=== PATIENT | male | born 1980 | race Caucasian/White ===

== ENCOUNTER 2020-02-26 00:14 | Emergency (ER) | payer OTHER ==
[~2020-02-26] VITALS: Ht 175.3 cm; Wt 81.6 kg
[2020-02-26 00:15] VITALS: BP 121/80
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
--- NOTE | 2020-02-26 00:20 | NUR ---
ED Nurse Note: ERMD at bedside
--- NOTE | 2020-02-26 00:42 | Emergency Room Report ---
History of Present Illness General Chief Complaint: Pain Present Illness HPI 39-year-old male here with leg pain. The patient had a comminuted fracture of his right tib-fib approximately 1 month ago that had surgical repair at [facility]. Earlier today the patient was transferred to a rehab facility. However as standard protocol the patient was told that he needs to be kept in the 14-day quarantine at [facility] because he was in the hospital. Patient became angry and left AGAINST MEDICAL ADVICE. He was out on the street in front of the rehab facility and called paramedics who brought him here. Here the emergency department the patient says that "I do not need to be quarantined. I do not have COVID-19. You can test me." Patient is angry but is redirectable and able to answer questions appropriately. Allergies: Coded Allergies: No Known Allergies (Unverified , 02/26/20) COVID-19 Screening Contact w/high risk pt: No Experienced COVID-19 symptoms?: No COVID-19 Testing performed [employer]: No Physical Exam Vital Signs Date Time Temp Pulse Resp B/P (MAP) Pulse Ox O2 Delivery O2 Flow Rate FiO2 02/26/20 00:12 98.2 90 18 121/80 (94) 99 Room Air Sp02 EP Interpretation: reviewed, normal General Appearance: no apparent distress, alert, non-toxic Head: normocephalic, atraumatic Eyes: bilateral eye normal inspection, bilateral eye PERRL ENT: hearing grossly normal, normal pharynx, no angioedema, normal voice Neck: full range of motion, supple/symm/no masses Respiratory: chest non-tender, lungs clear, normal breath sounds, speaking full sentences Cardiovascular #1: regular rate, rhythm, no edema Cardiovascular #2: 2+ carotid (R), 2+ carotid (L), 2+ radial (R), 2+ radial (L), 2+ dorsalis pedis (R), 2+ dorsalis pedis (L) Gastrointestinal: normal bowel sounds, non tender, soft, non-distended, no guarding, no rebound Rectal: deferred Genitourinary: normal inspection, no CVA tenderness Musculoskeletal: back normal, other - Multiple close operative wounds diffusely of the right lower extremity held together with skin thomas. No surrounding erythema or induration or drainage or wound evisceration. Diffuse lower extremity swelling. DP and PT pulses intact Neurologic: alert, motor strength/tone normal, sensory intact, responsive, speech normal Psychiatric: memory normal, no suicidal/homicidal ideation, anxious, other - Angry, circumferential reason Lymphatic: no adenopathy Medical Decision Making Diagnostic Impression: Primary Impression: Intractable pain Additional Impressions: Post-op pain Comminuted fracture of shaft of tibia Tibial plateau fracture, right ER Course X-ray right lower extremity: Comminuted tib-fib and tibial plateau fracture with operative hardware throughout the shaft of the tibia. Many skin thomas in place 39-year-old male here with right lower extremity pain after internal fixation of a comminuted right tibial fracture. The patient was hemodynamically stable and neurovascularly intact in the emergency department. He required multiple doses of pain medications here. Multiple attempts were made to transfer the patient back to [facility] where he had the initial surgery performed however they refused transfer. Patient is to be admitted at [facility], and will be transferred to [facility]. Patient accepted by Dr. Cheema at [facility]. Awaiting transfer at this time. Last Vital Signs Date Time Temp Pulse Resp B/P (MAP) Pulse Ox O2 Delivery O2 Flow Rate FiO2 02/26/20 00:12 98.2 90 18 121/80 (94) 99 Room Air Referrals: NOT CHOSEN IPA/,REFERRING (PCP) Steve Hidalgo M.D. Feb 26, 2020 00:42
--- NOTE | 2020-02-26 00:50 | NUR ---
ED Nurse Note: Spoke to AIME of [facility] rehab and was told that the patient left AMA upon ambulance arrival. Rehab never had the chance to assess the patient.
[2020-02-26] MEDS ORDERED: Morphine Sulfate 4mg/ml Inj (IV USE ONLY) IVP ONE (01:00)
--- NOTE | 2020-02-26 01:00 | NUR ---
ED Nurse Note: Blood and rapid covid test sent to lab
[2020-02-26 01:19] LABS: BASOPHILS % (AUTO) 1.4 % (0.0-2.0); EOSINOPHILS % (AUTO) 2.8 % (0.0-3.0); HEMATOCRIT 27.6 % (42.0-52.0); HEMOGLOBIN 9.6 G/DL (14.2-18.0); LYMPHOCYTES % (AUTO) 23.3 % (20.0-45.0); MEAN CORPUSCULAR VOLUME 88 FL (80-99); MONOCYTES % (AUTO) 8.3 % (1.0-10.0); NEUTROPHILS % (AUTO) 64.3 % (45.0-75.0); PLATELET COUNT 728 K/UL (150-450); RED BLOOD COUNT 3.13 M/UL (4.70-6.10); RED CELL DISTRIBUTION WIDTH 12.4 % (11.6-14.8); WHITE BLOOD COUNT 7.3 K/UL (4.8-10.8)
[2020-02-26 01:30] LABS: ANION GAP 11 mmol/L (5-15); BLOOD UREA NITROGEN 11 mg/dL (7-18); CALCIUM 8.4 MG/DL (8.5-10.1); CARBON DIOXIDE 25 MMOL/L (21-32); CHLORIDE 103 MMOL/L (98-107); CREATININE 0.8 MG/DL (0.55-1.30); POTASSIUM 3.7 MMOL/L (3.5-5.1); SODIUM 139 MMOL/L (136-145)
[2020-02-26 01:35] LABS: ALANINE AMINOTRANSFERASE 33 U/L (12-78); ALBUMIN/GLOBULIN RATIO 0.8 (1.0-2.7); ALKALINE PHOSPHATASE 125 U/L (46-116); ASPARTATE AMINO TRANSFERASE 18 U/L (15-37); BILIRUBIN,TOTAL 0.2 MG/DL (0.2-1.0)
--- NOTE | 2020-02-26 02:20 | NUR ---
ED Nurse Note: Urine sent to lab
--- NOTE | 2020-02-26 02:51 | NUR ---
ED Nurse Note: Spoke to CARMELO (supervisor assembling) of [facility] and gave report
--- NOTE | 2020-02-26 03:05 | NUR ---
ED Nurse Note: Bedside report given to [facility] ambulance personnel.
--- NOTE | 2020-02-26 03:09 | NUR ---
ER DISCHARGE NOTE: Patient is picked up by [facility] ambulance going to [facility]. Patients packet given to ambulance personnel. Patient is cleared to be transferred per ERMD, pt is aox4, on room air, with stable vital signs. patient has IV access on right hand g20. pt took all belongings. pt transported safely to the ambulance.
[2020-02-26 03:11] VITALS: BP 116/78
--- NOTE | 2020-02-26 15:59 | Diagnostic Imaging Report ---
Indication: Leg pain Technique: 2 views of the left tibia and fibula Comparison: none Findings: There is an impacted fracture of the fibular neck. Multiple plates and screws are seen reducing comminuted proximal tibial fracture. The hardware appears intact.. There are multiple overlying skin staple lines. There is also evidence of prior hardware removal from the distal tibia. Impression: Postsurgical changes, as described
--- NOTE | 2020-02-26 16:01 | Diagnostic Imaging Report ---
Indication: Right foot pain Technique: 3 views right foot Comparison: none Findings: No acute fractures. No dislocations. The joint spaces are preserved. Impression: Negative
== END 2020-02-26 03:13 | disposition short-term general hospital (02) ==
LOC: EDBD 00:14 → EMR 00:23
DX: G89.28 Other chronic postprocedural pain (principal); S82.491A Other fracture of shaft of right fibula, initial encounter for closed fracture; X58.XXXA Exposure to other specified factors, initial encounter; Y92.9 Unspecified place or not applicable; S82.101D Unspecified fracture of upper end of right tibia, subsequent encounter for closed fracture with routine healing; X58.XXXD Exposure to other specified factors, subsequent encounter; M25.571 Pain in right ankle and joints of right foot
CPT/HCPCS: 36415; 73590; 73630; 80053; 80307; 85025; 96374; G0480; J2270; U0002; Z7502; 99284